=== PATIENT | female | born 2000 | race Caucasian/White ===

== ENCOUNTER 2022-10-01 17:54 | Outpatient (REF) | payer MEDICAID, SELFPAY ==
[2022-10-01 16:06] LABS: Abs Immature Grans 0.03 10^3/uL (0.0-0.06); Absolute Basophil Count 0.05 10^3/uL (0.0-0.2); Absolute Eosinophil Count 0.15 10^3/uL (0.0-0.7); Absolute Lymphocyte Count 1.66 10^3/uL (1.2-3.4); Absolute Monocyte Count 0.71 10^3/uL (0.1-0.8); Absolute Neutrophil Count 7.04 10^3/uL (1.2-6.7); Basophils % 0.5; Eosinophils % 1.6; HCT 38.7 % (36.0-46.0); Immature Grans % 0.3; Lymphocytes % 17.2; MCH 27.9 pg (27.0-33.0); MCV 90 fL (80-95); MPV 10.6 fL (8.0-11.0); Monocytes % 7.4; Platelet Count 310 10^3/uL (130-400); RDW 13.2 % (11.7-14.6); RDW-SD 43.2 fL; WBC 9.64 10^3/uL (4.4-10.8)
[2022-10-01 16:20] LABS: Mono Screening Negative (Negative)
== END 2022-10-01 17:55 | disposition home or self-care (01) ==
LOC: NCHCN 17:54
PROVIDERS: PCP Internal Medicine; Visit Provider Nurse Practitioner Family
DX: R53.83 Other fatigue (principal); R53.81 Other malaise; J39.8 Other specified diseases of upper respiratory tract
CPT/HCPCS: 85025; 86308